=== PATIENT | female | born 1965 | race Caucasian/White ===

== ENCOUNTER 2019-01-13 13:12 | Emergency (ER) | payer SELFPAY ==
[~2019-01-13] VITALS: Ht 172.7 cm; Wt 88.6 kg
[~2019-01-13 13:12] MED LIST: DEPO-PROVER400 MG/ML IM; MULTIPLE VITAMI1 CAP PO; NORCO 325 MG-51 TAB PO; PRINZIDE 12.5 M1 TAB PO
[2019-01-13 13:19] VITALS: TEMP 97.8
[2019-01-13] MEDS ORDERED: PRINZIDE 12.5 M1 TAB PO (14:14)
[2019-01-13 14:27] VITALS: BP 177/115; PULSE 84
== END 2019-01-13 14:27 | disposition home or self-care (01) ==
LOC: COL.ER 13:12
DX: S01.112A Laceration without foreign body of left eyelid and periocular area, initial encounter (principal); S05.12XA Contusion of eyeball and orbital tissues, left eye, initial encounter; I10 Essential (primary) hypertension; Z88.0 Allergy status to penicillin; Z23 Encounter for immunization; Z98.890 Other specified postprocedural states; W01.0XXA Fall on same level from slipping, tripping and stumbling without subsequent striking against object, initial encounter